=== PATIENT | male | born 1985 | race Caucasian/White ===

== ENCOUNTER 2016-11-30 11:12 | Emergency (ER) | payer SELFPAY ==
[2016-11-30 11:15] VITALS: BP 116/81; BMI 29.2
[2016-11-30] MEDS ORDERED: ZOFRAN INJ 4 MG VIAL ONE (11:17)
[2016-11-30] MEDS ORDERED: NS 1000 ML 1,000 ML ONE (11:18)
[2016-11-30] MEDS ORDERED: ZOFRAN INJ 4 MG VIAL IVP ONE (11:29)
[2016-11-30] MEDS ORDERED: NS 1000 ML 1,000 ML IV ONE (11:30)
[2016-11-30] MEDS ORDERED: PEPCID 20 MG IV PREMIX* 20 MG/50 ML BAG IV ONE ×2 (11:30→11:32)
--- NOTE | 2016-11-30 11:30 | DR.N/VMALE ---
HPI - Time Seen Time seen: 11:27 - Primary Care Physician Primary Care Physician: MINO - HPI Comment HPI Comment: NO ACUTE INJURY REPORTED. NO DYSURIA OR FEVER. NAUSEA AND VOMITING PRESENT. VOMITED SEVERAL TIMES. FEELING DIZZY. - Complaints Chief Complaint Doctors Comments: LOWER BACK PAIN WITH DIZINESS NAUSEA AND VOMITING THAT SRTARTED SUDDENLY TODAY. Chief Complaint:: PT. C/O NAUSEA/VOMITING, BACK PAIN, AND DIZZINESS. - Reviewed Nurses Notes Reviewed: Yes - Source History Provided: Patient - Mode of Arrival Mode of Arrival: Wheelchair - Timing Onset of Chief Complaint: 11/30/16 - Context Onset: Spontaneous Recent: None Possible Ingestion: Unknown History of: None - Quality Quality: Bilious - Associated Signs and Symptoms Abdominal Pain Quality: Aching, Sharp Symptoms: denies: Fever (NONE) PMH - PMH Past Medical History: Yes Past Medical History: Kidney Stones Past Surgical History: Yes Surgical History: Lithotripsy - Family History History of Family Medical Conditions: Yes Family Medical History: Diabetes Mellitus, Coronary Artery Disease, Hypertension - Social History Does patient currently use any type of tobacco product: Yes Have you used tobacco products in the last 12 months: Yes Type of Tobacco Use: Cigarettes Does any household member use tobacco: No Alcohol Use: None Do you use any recreational Drugs:: Yes (MARIJUANA & ROXYCODONE) Lives With: Spouse Lives Where: Home - infectious screening In the last 2 months have you had wt loss of >10#?: NO Have you had fever, night sweats or hemotysis?: No Have you traveled outside the country in the last 6 months?: No Isolation: Standard ROS - Review of Systems Constitutional: No Symptoms Reported Eyes: No Symptoms Reported ENTM: No Symptoms Reported Respiratoy: No Symptoms Reported Cardiovascular: No Symptoms Reported Gastrointestinal/Abdominal: Nausea, Vomiting Genitourinary: No Symptoms Reported. negative: Dysuria, Frequency, Hematuria Neurological: Dizziness Musculoskeletal: Back Pain (LOWER BACK PAIN) Integumentary: No Symptoms Reported Hematologic/Lymphatic: No Symptoms Reported Psychiatric: No Symptoms Reported All Other Systems: Reviewed and Negative PE - Vital Signs Vitals: Pulse Rate 103 Respiratory Rate 24 Blood Pressure [Left Arm] 115/75 Blood Pressure 116/81 O2 Sat by Pulse Oximetry 100 - General Limitations: No Limitations General Appearance: Alert - Head Head Exam: Normal Inspection - Eyes Eye exam: Normal Appearance - ENT ENT Exam: Normal External Ear Exam - Neck Neck Exam: Normal Inspection - Chest Chest Inspection: Symmetric Chest Wall Rise - Respiratory Respiratory Exam: Normal Lung Sounds Bilat Respiratory Exam: Bilateral Clear to Auscultation - Cardiovascular Cardiovascular Exam: Regular Rate, Normal Rhythm, Normal Heart Sounds - Abdominal Exam Abdominal Exam: Normal Bowel Sounds, Soft. negative: Tenderness - Rectal Rectal Exam: Deferred - Exam: Male: Deferred - Extremities Extremities Exam: Normal Inspection - Back Back Exam: Paraspinal Tenderness (LOWER BACK) - Neurologic Neurological Exam: Alert, Oriented X3, CN II-XII Intact, Normal Gait. negative : Motor Sensory Deficit - Psychiatric Psychiatric Exam: Anxious - Skin Skin Exam: Normal Color MDM - Additional Information Obtained Additional Information Obtained From: Family - Differential Diagnosis Differential Diagnosis: Considerations may Include:: Bowel Obstruction, Cholecystitis, Food Poisoning, Gastritis, Urinary Tract Infection, Urolithiasis Differential Diagnosis Comment: KIDNEY STONE Course - Treatment Treatment: SEE ORDERS. IV ZOFRAN AND IV TORADOL IN ED. PAIN DECREASING. - Reevaluation 1st: Improved - Education/Counseling Education/Counseling: Patient, Education Educated On: Treatment, Diagnosis, Needs for Follow Up ROR - Labs Reviewed Laboratory Results Reviewed?: Yes Result Diagrams: 11/30/16 11:24 11/30/16 11:24 Laboratory: WBC 10.9 X10^3/uL (3.6-10.0) H 11/30/16 11:24 RBC 5.21 X10^6/uL (4.7-6.0) 11/30/16 11:24 Hgb 14.3 g/dL (13.5-18.0) 11/30/16 11:24 Hct 41.1 % (42.0-54.0) L 11/30/16 11:24 MCV 79.0 fL (80.0-100.0) L 11/30/16 11:24 MCH 27.4 pg (27.0-34.0) 11/30/16 11:24 MCHC 34.7 g/dL (33.0-35.0) 11/30/16 11:24 RDW 14.7 % (11.6-16.5) 11/30/16 11:24 Plt Count 242 X10^3/uL (150.0-450.0) 11/30/16 11:24 MPV 7.9 fL (7.4-11.0) 11/30/16 11:24 Neut % 84.3 % (42.0-75.0) H 11/30/16 11:24 Lymph % 7.2 % (21.0-51.0) L 11/30/16 11:24 Bland % 7.6 % (0.0-13.0) 11/30/16 11:24 Eos % 0.2 % (0.9-2.9) L 11/30/16 11:24 Baso % 0.7 % (0.2-1.0) 11/30/16 11:24 Neut # 9.2 x10^3/uL (2.2-4.8) H 11/30/16 11:24 Lymph # 0.8 X10^3/uL (1.3-2.9) L 11/30/16 11:24 Bland # 0.8 x10^3/uL (0.3-0.8) 11/30/16 11:24 Eos # 0.0 x10^3/uL (0.0-0.2) 11/30/16 11:24 Baso # 0.1 X10^3/uL (0.0-0.1) 11/30/16 11:24 Absolute Nucleated RBC 0.1 /100WBC 11/30/16 11:24 Sodium 136 mmol/L (136-145) 11/30/16 11:24 Corrected Sodium TNP 11/30/16 11:24 Potassium 3.4 mmol/L (3.5-5.1) L 11/30/16 11:24 Chloride 101 mmol/L (98-107) 11/30/16 11:24 Carbon Dioxide 26.1 mmol/L (21-32) 11/30/16 11:24 BUN 8 mg/dL (7-18) 11/30/16 11:24 Creatinine 0.98 mg/dL (0.70-1.30) 11/30/16 11:24 Est GFR (MDRD) Af Amer > 60 (>60) 11/30/16 11:24 Est GFR (MDRD) Non-Af > 60 (>60) 11/30/16 11:24 Glucose 97 mg/dL (65-99) 11/30/16 11:24 Calcium 8.7 mg/dL (8.5-10.1) 11/30/16 11:24 Corrected Calcium TNP 11/30/16 11:24 Total Bilirubin 0.70 mg/dL (0.2-1.0) 11/30/16 11:24 AST 48 Units/L (15-37) H 11/30/16 11:24 ALT 68 Units/L (12-78) 11/30/16 11:24 Alkaline Phosphatase 104 Units/L (46-116) 11/30/16 11:24 Total Protein 7.9 g/dL (6.4-8.2) 11/30/16 11:24 Albumin 3.7 g/dL (3.4-5.0) 11/30/16 11:24 Globulin 4.2 g/dL (2.5-4.5) 11/30/16 11:24 Albumin/Globulin Ratio 0.9 Ratio (1.1-2.1) L 11/30/16 11:24 Amylase 49 Units/L (25-115) 11/30/16 11:24 Lipase 41 Units/L (73-393) L 11/30/16 11:24 - XRAY XRAY Interpreted by: Radiologist XRAY Findings: REPORT DISCUSS WITH PATIENT AND FAMILY. - Diagnosis Discharge Problem: Kidney abscess Back pain Qualifiers: Back pain location: low back pain Chronicity: acute Back pain laterality: bilateral Sciatica presence: without sciatica Qualified Code(s): M54.5 - Low back pain - Discharge Plan Disposition: HOME, SELF-CARE Condition: Stable Prescriptions: Ketorolac Tromethamine [Toradol Tab] 10 mg PO Q8H PRN #15 tab PRN Reason: Pain Ondansetron HCl [Zofran Tab 4 mg] 4 mg PO Q8H PRN #12 tab PRN Reason: Nausea/Vomiting - Follow ups/Referrals Follow ups/Referrals: NFD,None [Primary Care Provider] - 3 days - Instructions Instructions: Kidney Stones, [id number], Back Pain, Adult, [id number] Additional Instructions: RETURN TO ED IF WORSE. REFER TO UROLOGIST.
[2016-11-30 11:35] LABS: BASOPHILS # (AUTO) 0.1 X10^3/uL (0.0-0.1); BASOPHILS % (AUTO) 0.7 % (0.2-1.0); EOSINOPHILS % (AUTO) 0.2 % (0.9-2.9); HEMATOCRIT 41.1 % (42.0-54.0); HEMOGLOBIN 14.3 g/dL (13.5-18.0); LYMPHOCYTES # (AUTO) 0.8 X10^3/uL (1.3-2.9); LYMPHOCYTES % (AUTO) 7.2 % (21.0-51.0); MEAN CORPUSCULAR HEMOGLOBIN 27.4 pg (27.0-34.0); MEAN CORPUSCULAR HGB CONC 34.7 g/dL (33.0-35.0); MEAN PLATELET VOLUME 7.9 fL (7.4-11.0); MONOCYTES # (AUTO) 0.8 x10^3/uL (0.3-0.8); MONOCYTES % (AUTO) 7.6 % (0.0-13.0); NEUTROPHILS # (AUTO) 9.2 x10^3/uL (2.2-4.8); NEUTROPHILS % (AUTO) 84.3 % (42.0-75.0); PLATELET COUNT 242 X10^3/uL (150.0-450.0); RED BLOOD COUNT 5.21 X10^6/uL (4.7-6.0); RED CELL DISTRIBUTION WIDTH 14.7 % (11.6-16.5); WHITE BLOOD COUNT 10.9 X10^3/uL (3.6-10.0)
[2016-11-30] MEDS ORDERED: TORADOL 30 MG VIAL ONE (11:35)
[2016-11-30] MEDS ORDERED: TORADOL 30 MG VIAL IVP ONE (11:37)
[2016-11-30 11:54] LABS: ALANINE AMINOTRANSFERASE 68 Units/L (12-78); ALBUMIN 3.7 g/dL (3.4-5.0); ALKALINE PHOSPHATASE 104 Units/L (46-116); AMYLASE 49 Units/L (25-115); ASPARTATE AMINO TRANSFERASE 48 Units/L (15-37); BLOOD UREA NITROGEN 8 mg/dL (7-18); CALCIUM 8.7 mg/dL (8.5-10.1); CARBON DIOXIDE 26.1 mmol/L (21-32); CHLORIDE 101 mmol/L (98-107); CREATININE 0.98 mg/dL (0.70-1.30); GLUCOSE 97 mg/dL (65-99); LIPASE 41 Units/L (73-393); SODIUM 136 mmol/L (136-145); TOTAL PROTEIN 7.9 g/dL (6.4-8.2); eGFR BLACK RACES > 60 (>60); eGFR NON BLACK RACES > 60 (>60)
--- NOTE | 2016-11-30 13:27 | CT ---
HISTORY: Nausea, vomiting, dizziness Study: CT abdomen pelvis without contrast Comparison: July 12, 2016 Technique: Axial non contrast images with coronal and sagittal reformats. Dose reduction procedures were use with MA/kv adjusted for body size. This examination is limited due to the lack of intraveno us and oral contrast. Findings: The lung bases are clear. The liver, spleen, adrenal glands, and pancreas are within normal limits t o the limitations of an unenhanced examination. No opaque stones are visible within the gallbladder. The right kidney is unobstructed and without stones. Once again noted are multiple nonobstructing l eft lower pole renal calculi. Also noted again is left-sided hydronephrosis proximal to what appears to be a nondilated ureter. This may represent a congenital UPJ obstruction however retrograde exami nation is recommended in order to exclude neoplasm at the ureteropelvic junction. No intraperitoneal or retroperitoneal lymphadenopathy is identified. The appendix is normal. There are no findings sug gestive of diverticulitis or colitis. Examination of the pelvis demonstrated the bladder to be diste nded. No other bladder abnormality is identified. No pelvic masses, pelvic fluid, or pelvic lymphade nopathy is identified. IMPRESSION: Left-sided hydronephrosis proximal to a nondilated ureter. The point of obstruction appears to be at the left ureteropelvic junction. This could be a congenital anomaly however retrograde examination is recommended in order to exclude a lesion at the left UPJ. Multiple nonobstructing left lower pole renal calculi Reported By:
== END 2016-11-30 14:02 | disposition home or self-care (01) ==
LOC: ER 11:22
DX: N15.1 Renal and perinephric abscess (principal); M54.5 Low back pain
CPT/HCPCS: 36415; 74176; 80053; 82150; 83690; 85025; 96365; 96374; 96375; 99283; A4222; S0028; J1885; J2405

== ENCOUNTER 2017-09-21 03:16 | Emergency (ER) | payer SELFPAY ==
[2017-09-21 03:20] VITALS: BP 112/72; BMI 27.8
--- NOTE | 2017-09-21 04:16 | DR.GENAD ---
HPI - PCP Primary Care Physician: MINO - Complaint/Symptoms Chief Complaint Doctors Comments: Patient presents with complaint of toothe ache for one week. The cavity has been present for one year or more. Tooth #32 with cavity Chief Complaint:: TOOTHACHE - Source History Provided: Patient - Mode of Arrival Mode of Arrival: Ambulatory - Timing Onset of Chief Complaint: 09/20/17 PMH - PMH Past Medical History: Yes Past Medical History: Kidney Stones Past Surgical History: Yes Surgical History: Lithotripsy - Family History History of Family Medical Conditions: No Family Medical History: Diabetes Mellitus, Coronary Artery Disease, Hypertension - Social History Does patient currently use any type of tobacco product: Yes Have you used tobacco products in the last 12 months: Yes Type of Tobacco Use: Cigarettes Does any household member use tobacco: No Alcohol Use: None Do you use any recreational Drugs:: No Lives With: Family Lives Where: Home - infectious screening In the last 2 months have you had wt loss of >10#?: NO Have you had fever, night sweats or hemotysis?: No Have you traveled outside the country in the last 6 months?: No Isolation: Standard PE - Vital Signs Vitals: Temperature 98 F Pulse Rate 64 Respiratory Rate 16 Blood Pressure [Left Arm] 115/75 Blood Pressure 112/72 O2 Sat by Pulse Oximetry 98 - Discharge Plan Condition: Stable - Follow ups/Referrals Follow ups/Referrals: Carole HERZOG [Primary Care Provider] - 3 days - Instructions
[2017-09-21] MEDS ORDERED: TORADOL 60 MG VIAL IM ONE (04:19)
[2017-09-21] MEDS ORDERED: TORADOL 60 MG VIAL ONE (04:24)
== END 2017-09-21 04:32 | disposition home or self-care (01) ==
LOC: ER 03:16
DX: K04.7 Periapical abscess without sinus (principal)
CPT/HCPCS: 96372; 99282; J1885

== ENCOUNTER 2023-05-13 15:17 | Observation (INO) ==
[2023-05-13 17:17] LABS: BASOPHILS # (AUTO) 0.1 X10^3/uL (0.0-0.1); EOSINOPHILS # (AUTO) 0.2 x10^3/uL (0.0-0.2); EOSINOPHILS % (AUTO) 1.7 % (0.9-2.9); HEMATOCRIT 43.6 % (42.0-54.0); HEMOGLOBIN 14.5 g/dL (13.5-18.0); LYMPHOCYTES # (AUTO) 1.9 X10^3/uL (1.3-2.9); LYMPHOCYTES % (AUTO) 15.1 % (21.0-51.0); MEAN CORPUSCULAR HEMOGLOBIN 30.1 pg (27.0-34.0); MEAN CORPUSCULAR HGB CONC 33.2 g/dL (33.0-35.0); MEAN CORPUSCULAR VOLUME 90.7 fL (80.0-100.0); MEAN PLATELET VOLUME 7.2 fL (7.4-11.0); MONOCYTES # (AUTO) 0.6 x10^3/uL (0.3-0.8); MONOCYTES % (AUTO) 4.4 % (0.0-13.0); NEUTROPHILS # (AUTO) 9.8 x10^3/uL (2.2-4.8); NEUTROPHILS % (AUTO) 77.8 % (42.0-75.0); PLATELET COUNT 224 X10^3/uL (150.0-450.0); RED CELL DISTRIBUTION WIDTH 15.9 % (11.6-16.5); WHITE BLOOD COUNT 12.6 X10^3/uL (3.6-10.0)
[2023-05-13 17:27] LABS: ALANINE AMINOTRANSFERASE 40 Units/L (12-78); ALBUMIN 3.5 g/dL (3.4-5.0); ALKALINE PHOSPHATASE 86 Units/L (46-116); AMYLASE 45 Units/L (25-115); ASPARTATE AMINO TRANSFERASE 34 Units/L (15-37); BLOOD UREA NITROGEN 7 mg/dL (7-18); CALCIUM 8.4 mg/dL (8.5-10.1); CARBON DIOXIDE 28.6 mmol/L (21-32); CHLORIDE 102 mmol/L (98-107); CREATININE 0.87 mg/dL (0.70-1.30); GLUCOSE 86 mg/dL (65-99); LIPASE 12 Units/L (16-77); POTASSIUM 3.5 mmol/L (3.5-5.1); SODIUM 135 mmol/L (136-145); TOTAL PROTEIN 6.7 g/dL (6.4-8.2); eGFR NON BLACK RACES > 60 (>60)
[2023-05-13 17:43] VITALS: BMI 25.9
[2023-05-13] MEDS: D5 1/2 NS 1,000 ML 1,000 ML IV SCH ×2 (17:46→23:16)
[2023-05-13] MEDS: LEVAQUIN PREMIX IV 500 MG 500 MG/100 ML BAG IV SCH (18:21)
[2023-05-13] MEDS: DILAUDID INJ IVP PRN ×2 (19:31→23:15)
[2023-05-14] MEDS: DILAUDID INJ IVP PRN ×4 (03:11→20:21)
[2023-05-14] MEDS: D5 1/2 NS 1,000 ML 1,000 ML IV SCH ×4 (05:11→21:54)
[2023-05-14 06:24] LABS: BASOPHILS % (AUTO) 1.1 % (0.2-1.0); EOSINOPHILS # (AUTO) 0.2 x10^3/uL (0.0-0.2); HEMATOCRIT 39.9 % (42.0-54.0); HEMOGLOBIN 13.3 g/dL (13.5-18.0); LYMPHOCYTES # (AUTO) 1.5 X10^3/uL (1.3-2.9); LYMPHOCYTES % (AUTO) 35.4 % (21.0-51.0); MEAN CORPUSCULAR HEMOGLOBIN 30.5 pg (27.0-34.0); MEAN CORPUSCULAR HGB CONC 33.3 g/dL (33.0-35.0); MEAN CORPUSCULAR VOLUME 91.7 fL (80.0-100.0); MEAN PLATELET VOLUME 7.6 fL (7.4-11.0); MONOCYTES # (AUTO) 0.4 x10^3/uL (0.3-0.8); MONOCYTES % (AUTO) 8.5 % (0.0-13.0); PLATELET COUNT 225 X10^3/uL (150.0-450.0); RED BLOOD COUNT 4.35 X10^6/uL (4.7-6.0); RED CELL DISTRIBUTION WIDTH 15.8 % (11.6-16.5)
[2023-05-14 06:32] LABS: WHITE BLOOD COUNT 4.1 X10^3/uL (3.6-10.0)
[2023-05-14 06:44] LABS: ALANINE AMINOTRANSFERASE 37 Units/L (12-78); ALKALINE PHOSPHATASE 73 Units/L (46-116); ASPARTATE AMINO TRANSFERASE 33 Units/L (15-37); BLOOD UREA NITROGEN 4 mg/dL (7-18); CALCIUM 8.2 mg/dL (8.5-10.1); CARBON DIOXIDE 31.2 mmol/L (21-32); CHLORIDE 105 mmol/L (98-107); CREATININE 0.82 mg/dL (0.70-1.30); GLUCOSE 87 mg/dL (65-99); POTASSIUM 3.4 mmol/L (3.5-5.1); SODIUM 140 mmol/L (136-145); eGFR NON BLACK RACES > 60 (>60)
--- NOTE | 2023-05-14 07:49 | US ---
EXAM:GALL BLADDERHISTORY:Right upper quadrant pain, abnormal CT abdomen pelvis 05/08/2023 liver is normal in size and configuration but slightly increased in echogenicity suggestive of mild fatty infiltration. No abnormal masses, cysts, or biliary ductal dilatation identified. Portal blood flow was hepatopetal, hepatic artery was patentTECHNIQUE:Multiple grayscale sonographic images were obtained.COMPARISON:CT abdomen pelvis 05/08/2023FINDINGS:Liver is normal in size and configuration but slightly increased in echogenicity suggestive of mild fatty infiltration. No abnormal masses, cysts, or biliary ductal dilatation identified. Portal blood flow was hepatopetal, hepatic artery was patent. Hepatic venous blood flow was hepatofugal. Gallbladder was distended. No stones are identified. Common duct measured 6.6 mm. The gallbladder wall thickening described in the fundus of the gallbladder on the recent CT is not well demonstrated. Follow-up examination may be indicated for better evaluation. If abnormality is still suspected MRI would be of further diagnostic value. Right kidney measured 11.4 cm in length and was unobstructed.IMPRESSION:Mild fatty infiltration of the liverNo evidence for cholelithiasis or cholecystitisFundal wall of the gallbladder not well-visualized on this examination partially due to distention of the gallbladder. Follow-up examination may be indicated to reassess the finding on the recent CT. If this area of the gallbladder wall is not well-visualized on follow-up then MRI may be of further diagnostic value.THIS IS AN ELECTRONICALLY VERIFIED FINAL REPORT05/14/2023 7:46 AM - Electronically signed by Jerardo Goldsmith MD
[2023-05-14] MEDS ORDERED: CONSULT PHARMACY - POTASSIUM & MAGNESIUM XX SCH (08:00)
[2023-05-14] MEDS ORDERED: D5 1/2 NS + KCL 20 MEQ/L 1,000 ML IV SCH (09:00)
[2023-05-14] MEDS: LEVAQUIN PREMIX IV 500 MG 500 MG/100 ML BAG IV SCH (09:01)
[2023-05-14] MEDS ORDERED: LR 1,000 ML IV 1,000 ML IV ONE (12:12)
[2023-05-14] MEDS ORDERED: ANCEF VIAL 1 GRAM ONE (12:12)
[2023-05-14] MEDS ORDERED: NS 100 ML IV 100 ML ONE (12:12)
[2023-05-14] MEDS ORDERED: PEPCID 20 MG VIAL ONE ×2 (12:21)
[2023-05-14] MEDS ORDERED: ZOFRAN INJ 4 MG VIAL ONE (12:21)
[2023-05-14] MEDS ORDERED: DILAUDID INJ ONE (12:21)
[2023-05-14] MEDS ORDERED: ZEMURON 100 MG VIAL ONE (12:27)
[2023-05-14] MEDS ORDERED: DIPRIVAN VIAL 20 ML ONE (12:27)
[2023-05-14] MEDS ORDERED: QUELICIN (OR ANECTINE) ONE (12:27)
[2023-05-14] MEDS ORDERED: VERSED ONE (12:29)
[2023-05-14] MEDS ORDERED: ULTANE GAS IN ONE (12:30)
[2023-05-14] MEDS ORDERED: KETAMINE HCL ONE (12:30)
[2023-05-14] MEDS ORDERED: SUPRANE ONE (12:30)
[2023-05-14] MEDS ORDERED: BACTROBAN TOPICAL OINT ONE (12:44)
[2023-05-14] MEDS ORDERED: DECADRON INJ ONE (13:20)
[2023-05-14] MEDS ORDERED: BRIDION ONE (13:27)
[2023-05-14] MEDS ORDERED: BENADRYL INJ 50 MG VIAL IVP PRN (13:44)
[2023-05-14] MEDS ORDERED: REGLAN INJ 10 MG VIAL IVP PRN (13:44)
[2023-05-14] MEDS ORDERED: BARHEMSYS INJ IVP PRN (13:44)
[2023-05-14] MEDS ORDERED: ZOFRAN INJ 4 MG VIAL IVP PRN (13:44)
[2023-05-14] MEDS ORDERED: DILAUDID INJ IVP PRN (13:44)
[2023-05-14] MEDS: ZOFRAN INJ 4 MG VIAL IVP PRN (20:21)
[2023-05-15] MEDS: DILAUDID INJ IVP PRN ×4 (00:17→12:00)
[2023-05-15] MEDS: D5 1/2 NS 1,000 ML 1,000 ML IV SCH ×2 (01:06→08:15)
[2023-05-15 03:36] VITALS: TEMP 98.3; O2SAT 93
[2023-05-15] MEDS: ZOFRAN INJ 4 MG VIAL IVP PRN (04:31)
[2023-05-15 04:32] VITALS: RESP 20
[2023-05-15 06:28] LABS: BASOPHILS # (AUTO) 0.1 X10^3/uL (0.0-0.1); BASOPHILS % (AUTO) 0.8 % (0.2-1.0); EOSINOPHILS % (AUTO) 0.2 % (0.9-2.9); HEMATOCRIT 40.8 % (42.0-54.0); HEMOGLOBIN 13.6 g/dL (13.5-18.0); LYMPHOCYTES # (AUTO) 1.5 X10^3/uL (1.3-2.9); LYMPHOCYTES % (AUTO) 13.1 % (21.0-51.0); MEAN CORPUSCULAR HEMOGLOBIN 30.5 pg (27.0-34.0); MEAN CORPUSCULAR HGB CONC 33.4 g/dL (33.0-35.0); MEAN CORPUSCULAR VOLUME 91.3 fL (80.0-100.0); MEAN PLATELET VOLUME 7.6 fL (7.4-11.0); MONOCYTES # (AUTO) 0.7 x10^3/uL (0.3-0.8); MONOCYTES % (AUTO) 6.5 % (0.0-13.0); NEUTROPHILS # (AUTO) 8.9 x10^3/uL (2.2-4.8); NEUTROPHILS % (AUTO) 79.4 % (42.0-75.0); PLATELET COUNT 236 X10^3/uL (150.0-450.0); RED BLOOD COUNT 4.47 X10^6/uL (4.7-6.0); RED CELL DISTRIBUTION WIDTH 15.9 % (11.6-16.5); WHITE BLOOD COUNT 11.2 X10^3/uL (3.6-10.0)
[2023-05-15 06:40] LABS: ALANINE AMINOTRANSFERASE 29 Units/L (12-78); ALKALINE PHOSPHATASE 75 Units/L (46-116); ASPARTATE AMINO TRANSFERASE 30 Units/L (15-37); BLOOD UREA NITROGEN 3 mg/dL (7-18); CALCIUM 8.1 mg/dL (8.5-10.1); CARBON DIOXIDE 29.5 mmol/L (21-32); CHLORIDE 104 mmol/L (98-107); COR CA(FOR HYPOALB) 8.9 mg/dL (8.5-10.1); CREATININE 0.76 mg/dL (0.70-1.30); GLUCOSE 98 mg/dL (65-99); POTASSIUM 3.8 mmol/L (3.5-5.1); SODIUM 139 mmol/L (136-145); TOTAL PROTEIN 6.3 g/dL (6.4-8.2); eGFR NON BLACK RACES > 60 (>60)
[2023-05-15] MEDS: LEVAQUIN PREMIX IV 500 MG 500 MG/100 ML BAG IV SCH (08:15)
[2023-05-15] MEDS ORDERED: MAALOX or MYLANTA PO PRN (08:32)
[2023-05-15 09:06] VITALS: BP 132/87; PULSE 81
[2023-05-15] MEDS ORDERED: NORCO 5/325 MG TAB PO PRN (10:13)
== END 2023-05-15 12:30 | disposition home or self-care (01) ==
LOC: MED/SURG
PROVIDERS: ADMIT Surgery; ATTEND Surgery
DX: K82.8 Other specified diseases of gallbladder; R10.11 Right upper quadrant pain; R11.2 Nausea with vomiting, unspecified; K76.0 Fatty (change of) liver, not elsewhere classified; K66.0 Peritoneal adhesions (postprocedural) (postinfection); R10.13 Epigastric pain; K80.12 Calculus of gallbladder with acute and chronic cholecystitis without obstruction; E87.1 Hypo-osmolality and hyponatremia